=== PATIENT | male | born 1960 | race African-American/Black ===

== ENCOUNTER 2017-07-11 06:36 | Day surgery (SDC) | payer OTHER ==
[2017-07-09 09:18] VITALS: BMI 44.2
[2017-07-11] MEDS ORDERED: ONDANSETRON 4 MG/2 ML VIAL IVPUSH PRN (07:23)
[2017-07-11] MEDS ORDERED: oxyCODONE HCL 5 MG TABLET PO PRN ×2 (07:23)
[2017-07-11] MEDS ORDERED: MIDAZOLAM HCL 2 MG/2 ML SINGLE DOSE VIAL ONE ×2 (07:29)
[2017-07-11] MEDS ORDERED: LACTATED RINGERS SOLUTION 1,000 ML IV SCH (07:30)
[2017-07-11] MEDS ORDERED: BUPIVACAINE HCL/PF 0.5% (5MG/ML) 10 ML VIAL ONE (07:31)
[2017-07-11] MEDS ORDERED: DEXAMETHASONE SOD PHOSPHATE/PF 10 MG/ML SDV ONE (07:32)
--- NOTE | 2017-07-11 08:04 | HP ---
[facility] - Chief Complaint Chief Complaint: right shoulder pain - Past Medical History Allergies/Adverse Reactions: Allergies Allergy/AdvReac Type Severity Reaction Status Date / Time No Known Drug Allergies Allergy Verified 07/11/17 07:37 nuts Allergy Intermediate Swelling Uncoded 07/11/17 07:37 - Current Medications Current Medications: Home Medications Medication Instructions Recorded Albuterol Sulfate Inhaler - 1 puff IH PRN 07/09/17 [Ventolin HFA Inhaler -] Oxycodone HCl/Acetaminophen 1 - 2 tab PO Q6H #50 tab MDD 8 07/11/17 [Percocet 5-325 mg Tablet -] [facility] Physical Exam - Physical Examination Vital Signs: Vital Signs Period Temp Pulse Resp BP Sys/Domínguez Pulse Ox Last 24 Hr 98.0 F 70 20 130/85 98 General Appearance: Well Nourished, Well Developed, Alert & Oriented x3 ENT: Clear Lung: Normal air movement Heart: Regular rate & rhythm Extremities: Other (right shoulder- + ttp, dec rom, + empty can, nvi MRI + rct) Neurological: Intact, Alert, Oriented [facility] Impression/Plan - Impression/Plan Impression: right shoulder rct Operative Procedure: right shoulder arthroscopy with RCR, SAD Date to be Performed: 07/11/17
[2017-07-11] MEDS ORDERED: ROCURONIUM BROMIDE 50 MG/5 ML VIAL ONE (08:25)
[2017-07-11] MEDS ORDERED: PROPOFOL 20 ML ONE (08:25)
[2017-07-11] MEDS ORDERED: LIDOCAINE HCL/PF 2% SDV 5ML VIAL ONE (08:27)
[2017-07-11] MEDS ORDERED: DEXAMETHASONE SOD PHOSPHATE 4 MG/1 ML VIAL ONE (08:27)
[2017-07-11] MEDS ORDERED: ceFAZolin SODIUM 1 GM VIAL ONE (08:56)
[2017-07-11] MEDS ORDERED: ceFAZolin SODIUM 1 GM VIAL IVPB ONE (09:00)
--- NOTE | 2017-07-11 09:55 | OP ---
Operative Note - Note: Operative Date: 07/11/17 ([facility]) Pre-Operative Diagnosis: right shoulder rct Operation: right shoulder arthroscopy with RCR, SAD Implants: arthrex speedbridge, 1 swivelock Post-Operative Diagnosis: Same as Pre-op Surgeon: Ulisses Vasques Oven Dumper: Lai Gaston Anesthesiologist/PARKING ASSISTANT: Kyler Melissa Anesthesia: General, Local Specimens Removed: shavings Estimated Blood Loss (mls): 5 Operative Report Dictated: Yes
--- NOTE | 2017-07-11 11:01 | OP ---
DATE OF OPERATION: 07/11/2017 PREOPERATIVE DIAGNOSIS: Right rotator cuff tear. POSTOPERATIVE DIAGNOSIS: Right rotator cuff tear. PROCEDURE: Arthroscopy, right shoulder, subacromial decompression, and arthroscopic right rotator cuff repair. SURGICAL ATTENDING: Ulisses Vasques MD APPLICATIONS SUPPORT ANALYST: MAKENZIE Munson ANESTHESIA: Regional and general. CLOSURE: Arthrex SpeedBridge as well as an additional SwiveLoc and suture, 3-0 nylon for the skin. ESTIMATED BLOOD LOSS: Negligible. COMPLICATIONS: None. CONDITION: Recovery room in stable condition. DESCRIPTION OF OPERATIVE PROCEDURE: The patient was taken to the operating room on JULY 08, 2017. Regional and general anesthesia was administered by the anesthesiologist. IV Kefzol was administered prophylactically prior to the case. The patient was placed into the beach chair position with all prominences well padded. The right shoulder area was prepped and draped in the usual sterile fashion. First, a diagnostic arthroscopy of the glenohumeral joint was performed. A posterior portal was made 2 fingerbreadths below the acromion first with a 15 blade followed by blunt trocar. Circumferential exam of the glenohumeral joint revealed the following: Intact glenoid and humeral head articular cartilage, intact labrum circumferentially, intact biceps and biceps anchor, no loose bodies in the axillary pouch, subscapularis good to its insertion, biceps tendon good to its insertion. Looking superiorly, however, the patient was found to have a crescent rotator cuff tear as suspected on a clinical exam and MRI. Fluid was drained from the shoulder, and the trocar was removed. The posterior trocar was redirected in the subacromial space. An accessory lateral portal was made with a 15 blade blunt trocar as well as a small anterior portal just above the AC joint. Bursectomy was performed using ArthroCare device. The coracoacromial ligament was identified and detached off the anterior acromion and visualized, dropped inferiorly, and it was further debrided. Acromioplasty was then performed using the bur gaining sufficient height in the subacromial space for the rotator cuff. The fibrous tissue encasing the humeral head was debrided exposing the crescent tear of the rotator cuff. Grasping the rotator cuff produced a rotator cuff that was able to be reduced to the greater tuberosity. Greater tuberosity had a marked spur. This was debrided using a shaver, and good bleeding surface for reimplantation was obtained. Two SwiveLoc anchors with preloaded FiberTape were malleted into the articular margin, one anteriorly and one posteriorly. The sutures were passed through the rotator cuff in a fanned out position using the Pebbleion self-retrieving punch. One anterior limb and one posterior limb were then fixated to the greater tuberosity through a posterior SwiveLoc lateral row anchor and one anterior limb and one posterior limb were fixated to the greater tuberosity through the SwiveLoc lateral row anchor more anteriorly. This reduced the bulk of the rotator cuff to the greater tuberosity. There was a small area anteriorly that was not reduced. Two FiberWire sutures were placed using a Scorpion suture passer there, and extra SwiveLoc anchor was used to repair that part of the rotator cuff to the greater tuberosity. All sutures were cut snug. Post fixation, the shoulder was taken through a range of motion and found to have excellent stability of the repair, excellent clearance on the subacromial space above. The fluid was drained out of the shoulder. The portals were closed using 3-0 nylon. Sterile pressure dressing followed by a shoulder immobilizer was applied. The patient was awakened from anesthesia and transferred to the recovery room in stable condition. No complications. Estimated blood loss negligible. Karla BARKER/[id number]
[2017-07-11 11:33] VITALS: TEMP 97.9
[2017-07-11 12:35] VITALS: BP 142/87; PULSE 74
--- NOTE | 2017-07-14 17:33 | PATH ---
Surgical Pathology Report Patient Name: LACHO PHILIP Med. Rec. #: [id number] /Age/Gender: 1960 (Age: 57) / M Account: [id number] Location: [facility] Taken: 07/11/2017 Received: 07/11/2017 Reported: 07/14/2017 Physicians: Ulisses Vasques M.D. Specimen(s) Received RIGHT SHOULDER SHAVINGS Clinical History Right shoulder tear Final Diagnosis SHOULDER SHAVINGS, RIGHT, ARTHROSCOPY AND ROTATOR CUFF REPAIR: FRAGMENTS OF BENIGN CARTILAGE, DENSE FIBROCONNECTIVE TISSUE, ADIPOSE TISSUE, AND SKELETAL MUSCLE. Electronically Signed Suki Keith M.D. Gross Description Received in formalin, labeled "right shoulder shavings," is a 4.5 x 4.0 x 0.4 cm. aggregate of machuca-yellow soft tissue fragments. A community health program representative portion is submitted in one cassette. 07/11/201707/11/2017
== END 2017-07-11 12:38 | disposition home or self-care (01) ==
LOC: JASU-SURG 06:36
PROVIDERS: ATTEND Orthopaedic Surgery
PROC: 0LQ14ZZ Repair Right Shoulder Tendon, Percutaneous Endoscopic Approach (ICD-10-PCS; principal; 2017-07-11 08:45)
PROC: 0RNJ4ZZ Release Right Shoulder Joint, Percutaneous Endoscopic Approach (ICD-10-PCS; 2017-07-11 08:45)
DX: M75.101 Unspecified rotator cuff tear or rupture of right shoulder, not specified as traumatic (principal)
CPT/HCPCS: 88304-TC; 94760